=== PATIENT | male | born 1955 | race Caucasian/White ===

== ENCOUNTER 2018-02-05 10:21 | Inpatient (IN) ==
[2018-02-05] MEDS ORDERED: ONDANSETRON 4 MG/2 ML VIAL IV STA (10:49)
[2018-02-05] MEDS ORDERED: HYDROmorphone 2 MG/1 ML VIAL IV STA ×2 (10:49→13:28)
[2018-02-05] MEDS ORDERED: SODIUM CHLORIDE 0.9% 500 ML IV STA (10:49)
[2018-02-05] MEDS ORDERED: ONDANSETRON 4 MG/2 ML VIAL ONE (10:58)
[2018-02-05] MEDS ORDERED: HYDROmorphone 2 MG/1 ML VIAL ONE ×2 (10:59→13:29)
[2018-02-05 11:26] LABS: Basophils # 0.1 10*3/uL (0.0-0.2); Basophils % 0.3 % (0.0-0.8); Eosinophils % 0.1 % (0.00-10.9); Hematocrit 42.2 VOL% (42.0-52.0); Hemoglobin 14.4 GM/DL (14.0-18.0); Immature Granulocytes % 0.6 %; Immature Granulocytes Absolute 0.12 #; Lymphocytes % 4.8 % (21.2-54.2); Mean Corpuscular HGB Conc 34.1 GM/DL (32-36); Mean Corpuscular Hemoglobin 29 PG (27-34); Mean Corpuscular Volume 85.9 FL (87-102); Mean Platelet Volume 9.9 FL (9.6-12.0); Monocytes # 1.9 10*3/uL (0.11-0.8); Monocytes % 9.2 % (1.7-12.7); Neutrophils # 17.8 10*3/uL (1.4-7.4); Platelet Count 328 T/CUMM (130-400); Red Blood Count 4.91 MC/CUMM (3.8-5.5); Red Cell Distribution Width 12.9 % (9.3-17.3); White Blood Count 20.9 T/CUMM (4-12)
[2018-02-05 11:59] LABS: Lactic Acid 1.5 MMOL/L (0.4-2.0)
[2018-02-05 13:01] LABS: Bilirubin,Total 2.9 MG/DL (0.2-1.0); Calcium 9.2 MG/DL (8.5-10.1); Osmolality,Calculated 279.8 MOS/KG (273-304); Potassium 3.8 MMOL/L (3.5-5.1); Total Protein 6.9 G/DL (6.4-8.3)
[2018-02-05 13:46] LABS: Band Neutrophils 2 % (0-10); Hypochromasia 2+; Lymphocytes 8 % (20-55); Platelet Estimate Adequate; Segmented Neutrophils 82 % (50-85); Total Cells Counted 100
[2018-02-05 13:48] LABS: Apearance,Urine Slightly Hazy (Clear); Bilirubin,Urine Negative (Negative); Blood, Urine Negative (Negative); Glucose,Urine (UA) 50 mg/dL (Negative); Hyaline Casts,Urine 1 /LPF (0-3); Ketones,Urine 5 mg/dL (Negative); Mucus,Urine Moderate /LPF (Occasional); Nitrite,Urine Negative (Negative); Protein,Urine 30 MG/DL; RBC,Urine 3 /HPF (0-4); Urine Color Amber (Yellow); Urine Specific Gravity 1.031 (1.001-1.035); WBC,Urine 4 /HPF (0-6)
[2018-02-05] MEDS ORDERED: DEXTROSE 50% 25 GM/50 ML VIAL IV PRN (17:14)
[2018-02-05] MEDS ORDERED: GLUCAGON 1 MG VIAL IM PRN (17:14)
[2018-02-05] MEDS: SODIUM CHLORIDE 0.9% 1,000 ML IV SCH (18:10)
[2018-02-05] MEDS: INSULIN LISPRO 100 UNIT/ML SUBCUT SCH (18:11)
[2018-02-05] MEDS: HYDROmorphone 2 MG/1 ML VIAL IV PRN (18:25)
[2018-02-05] MEDS: ONDANSETRON 4 MG/2 ML VIAL IV PRN (19:39)
[2018-02-05] MEDS: ENOXAPARIN 40 MG/0.4 ML SYRINGE SUBCUT SCH (20:44)
[2018-02-05] MEDS: DOCUSATE SODIUM 100 MG CAPSULE PO SCH (20:46)
[2018-02-06] MEDS: INSULIN LISPRO 100 UNIT/ML SUBCUT SCH ×4 (00:05→18:23)
[2018-02-06] MEDS: ONDANSETRON 4 MG/2 ML VIAL IV PRN ×3 (00:43→20:28)
[2018-02-06] MEDS: HYDROmorphone 2 MG/1 ML VIAL IV PRN ×4 (00:44→20:29)
[2018-02-06] MEDS: SODIUM CHLORIDE 0.9% 1,000 ML IV SCH ×2 (01:29→10:31)
[2018-02-06 06:46] LABS: Basophils % 0.3 % (0.0-0.8); Eosinophils % 0.2 % (0.00-10.9); Hematocrit 37.6 VOL% (42.0-52.0); Hemoglobin 12.6 GM/DL (14.0-18.0); Immature Granulocytes % 0.9 %; Immature Granulocytes Absolute 0.13 #; Lymphocytes # 1.2 10*3/uL (1.4-4.0); Lymphocytes % 8.5 % (21.2-54.2); Mean Corpuscular HGB Conc 33.5 GM/DL (32-36); Mean Corpuscular Hemoglobin 29 PG (27-34); Mean Corpuscular Volume 86.4 FL (87-102); Monocytes # 0.4 10*3/uL (0.11-0.8); Neutrophils # 12.4 10*3/uL (1.4-7.4); Neutrophils % 87.1 % (38.7-73.9); Platelet Count 321 T/CUMM (130-400); Red Blood Count 4.35 MC/CUMM (3.8-5.5); Red Cell Distribution Width 13.4 % (9.3-17.3); White Blood Count 14.2 T/CUMM (4-12)
[2018-02-06 07:25] LABS: Albumin 3.3 G/DL (3.4-5.0); Bilirubin,Direct 0.45 MG/DL (0.0-0.20); Bilirubin,Total 1.4 MG/DL (0.2-1.0); Calcium 8.7 MG/DL (8.5-10.1); Osmolality,Calculated 279.7 MOS/KG (273-304); Potassium 3.5 MMOL/L (3.5-5.1); Risk Ratio 4.63; Total Protein 6.3 G/DL (6.4-8.3); VLDL CHOLESTEROL 36.4 MG/DL
[2018-02-06] MEDS: DOCUSATE SODIUM 100 MG CAPSULE PO SCH ×2 (09:20→20:33)
[2018-02-06] MEDS: PANTOPRAZOLE 40 MG VIAL IV SCH (09:21)
[2018-02-06] MEDS: hydrALAZINE 20 MG/1 ML VIAL IV PRN ×3 (09:23→20:56)
[2018-02-06] MEDS: METOPROLOL SUCCINATE XL 100 MG TABLET PO SCH (10:01)
[2018-02-06] MEDS: QUINAPRIL 20 MG TABLET PO SCH (10:01)
[2018-02-06] MEDS: DILTIAZEM CD 180 MG CAPSULE PO SCH (10:01)
[2018-02-06] MEDS: POTASSIUM CHLORIDE INJ 10 MEQ in LACTATED RINGERS 1,000 ML IV SCH ×2 (13:47→19:14)
[2018-02-06] MEDS: ACETAMINOPHEN 325 MG TABLET PO PRN ×2 (17:45→22:41)
[2018-02-06] MEDS: ENOXAPARIN 40 MG/0.4 ML SYRINGE SUBCUT SCH (20:30)
[2018-02-07] MEDS: POTASSIUM CHLORIDE INJ 10 MEQ in LACTATED RINGERS 1,000 ML IV SCH ×4 (00:31→19:30)
[2018-02-07] MEDS: INSULIN LISPRO 100 UNIT/ML SUBCUT SCH ×4 (00:57→19:01)
[2018-02-07 05:16] LABS: Basophils % 0.3 % (0.0-0.8); Eosinophils % 0.2 % (0.00-10.9); Hematocrit 35.2 VOL% (42.0-52.0); Hemoglobin 11.8 GM/DL (14.0-18.0); Immature Granulocytes % 0.9 %; Immature Granulocytes Absolute 0.12 #; Lymphocytes # 1.1 10*3/uL (1.4-4.0); Lymphocytes % 8.1 % (21.2-54.2); Mean Corpuscular HGB Conc 33.5 GM/DL (32-36); Mean Corpuscular Hemoglobin 29 PG (27-34); Mean Corpuscular Volume 87.6 FL (87-102); Mean Platelet Volume 9.6 FL (9.6-12.0); Monocytes # 1.3 10*3/uL (0.11-0.8); Monocytes % 9.3 % (1.7-12.7); Neutrophils # 10.9 10*3/uL (1.4-7.4); Neutrophils % 81.2 % (38.7-73.9); Platelet Count 321 T/CUMM (130-400); Red Blood Count 4.02 MC/CUMM (3.8-5.5); Red Cell Distribution Width 13.2 % (9.3-17.3); White Blood Count 13.4 T/CUMM (4-12)
[2018-02-07] MEDS: ACETAMINOPHEN 325 MG TABLET PO PRN ×2 (05:33→18:20)
[2018-02-07 06:09] LABS: Albumin 2.9 G/DL (3.4-5.0); Bilirubin,Direct 0.47 MG/DL (0.0-0.20); Bilirubin,Indirect 1.1 MG/DL (0.0-1.0); Bilirubin,Total 1.6 MG/DL (0.2-1.0); Calcium 8.6 MG/DL (8.5-10.1); Osmolality,Calculated 278.4 MOS/KG (273-304); Potassium 3.5 MMOL/L (3.5-5.1); Total Protein 5.9 G/DL (6.4-8.3)
[2018-02-07] MEDS: DILTIAZEM CD 180 MG CAPSULE PO SCH (08:57)
[2018-02-07] MEDS: QUINAPRIL 20 MG TABLET PO SCH (08:57)
[2018-02-07] MEDS: METOPROLOL SUCCINATE XL 100 MG TABLET PO SCH (08:57)
[2018-02-07] MEDS: hydrALAZINE 20 MG/1 ML VIAL IV PRN ×2 (09:00→20:40)
[2018-02-07] MEDS: PANTOPRAZOLE 40 MG VIAL IV SCH (09:00)
[2018-02-07] MEDS: ATORVASTATIN 10 MG TABLET PO SCH (09:00)
[2018-02-07] MEDS: DOCUSATE SODIUM 100 MG CAPSULE PO SCH ×2 (09:00→20:41)
[2018-02-07] MEDS: HYDROmorphone 2 MG/1 ML VIAL IV PRN ×4 (09:04→22:40)
[2018-02-07] MEDS: ONDANSETRON 4 MG/2 ML VIAL IV PRN ×2 (09:12→18:36)
[2018-02-07] MEDS: ENOXAPARIN 40 MG/0.4 ML SYRINGE SUBCUT SCH (20:41)
[2018-02-08] MEDS: INSULIN LISPRO 100 UNIT/ML SUBCUT SCH ×4 (00:08→18:40)
[2018-02-08] MEDS: ACETAMINOPHEN 325 MG TABLET PO PRN ×2 (00:09→06:51)
[2018-02-08] MEDS: hydrALAZINE 20 MG/1 ML VIAL IV PRN ×2 (04:19→19:45)
[2018-02-08 04:50] LABS: Basophils % 0.2 % (0.0-0.8); Eosinophils % 0.3 % (0.00-10.9); Hematocrit 33.3 VOL% (42.0-52.0); Hemoglobin 11.6 GM/DL (14.0-18.0); Immature Granulocytes % 0.6 %; Immature Granulocytes Absolute 0.08 #; Lymphocytes # 0.7 10*3/uL (1.4-4.0); Lymphocytes % 5.5 % (21.2-54.2); Mean Corpuscular HGB Conc 34.8 GM/DL (32-36); Mean Corpuscular Hemoglobin 30 PG (27-34); Mean Corpuscular Volume 85.4 FL (87-102); Mean Platelet Volume 9.3 FL (9.6-12.0); Monocytes % 7.7 % (1.7-12.7); Neutrophils # 11.2 10*3/uL (1.4-7.4); Neutrophils % 85.7 % (38.7-73.9); Platelet Count 355 T/CUMM (130-400); Red Cell Distribution Width 13.5 % (9.3-17.3)
[2018-02-08 05:19] LABS: Band Neutrophils 3 % (0-10); Eosinophils 1 % (0-10); Lymphocytes 3 % (20-55); Microcytosis 1+; Segmented Neutrophils 86 % (50-85); Total Cells Counted 100
[2018-02-08 05:20] LABS: Platelet Estimate Normal
[2018-02-08 05:29] LABS: Albumin 2.8 G/DL (3.4-5.0); Bilirubin,Direct 0.47 MG/DL (0.0-0.20); Bilirubin,Indirect 0.9 MG/DL (0.0-1.0); Bilirubin,Total 1.4 MG/DL (0.2-1.0); Calcium 8.5 MG/DL (8.5-10.1); Osmolality,Calculated 272.8 MOS/KG (273-304); Potassium 3.6 MMOL/L (3.5-5.1); Total Protein 5.7 G/DL (6.4-8.3)
[2018-02-08] MEDS: HYDROmorphone 2 MG/1 ML VIAL IV PRN ×3 (08:06→17:34)
[2018-02-08] MEDS: QUINAPRIL 20 MG TABLET PO SCH (08:08)
[2018-02-08] MEDS: METOPROLOL SUCCINATE XL 100 MG TABLET PO SCH (08:08)
[2018-02-08] MEDS: DILTIAZEM CD 180 MG CAPSULE PO SCH (08:08)
[2018-02-08] MEDS: ATORVASTATIN 10 MG TABLET PO SCH (08:08)
[2018-02-08] MEDS: ONDANSETRON 4 MG/2 ML VIAL IV PRN ×2 (08:09→19:46)
[2018-02-08] MEDS: DOCUSATE SODIUM 100 MG CAPSULE PO SCH ×2 (08:09→19:46)
[2018-02-08] MEDS: PANTOPRAZOLE 40 MG VIAL IV SCH (08:15)
[2018-02-08] MEDS: POTASSIUM CHLORIDE INJ 10 MEQ in LACTATED RINGERS 1,000 ML IV SCH (10:07)
[2018-02-08 12:51] LABS: Free PSA/PSA Ratio 0.21 ratio
[2018-02-08] MEDS: ENOXAPARIN 40 MG/0.4 ML SYRINGE SUBCUT SCH (19:47)
[2018-02-09] MEDS: IBUPROFEN 600 MG TABLET PO PRN ×3 (00:30→19:07)
[2018-02-09] MEDS: HYDROmorphone 2 MG/1 ML VIAL IV PRN (00:35)
[2018-02-09] MEDS: DOCUSATE SODIUM 100 MG CAPSULE PO SCH ×3 (00:36→21:52)
[2018-02-09] MEDS: INSULIN LISPRO 100 UNIT/ML SUBCUT SCH ×4 (00:36→19:01)
[2018-02-09] MEDS: ENOXAPARIN 40 MG/0.4 ML SYRINGE SUBCUT SCH ×2 (00:36→21:52)
[2018-02-09 05:04] LABS: Basophils % 0.3 % (0.0-0.8); Eosinophils # 0.1 10*3/uL (0.0-0.87); Eosinophils % 0.5 % (0.00-10.9); Hematocrit 34.6 VOL% (42.0-52.0); Hemoglobin 11.6 GM/DL (14.0-18.0); Immature Granulocytes % 0.6 %; Immature Granulocytes Absolute 0.07 #; Lymphocytes # 1.1 10*3/uL (1.4-4.0); Lymphocytes % 8.6 % (21.2-54.2); Mean Corpuscular HGB Conc 33.5 GM/DL (32-36); Mean Corpuscular Hemoglobin 29 PG (27-34); Mean Corpuscular Volume 87.4 FL (87-102); Mean Platelet Volume 9.2 FL (9.6-12.0); Monocytes # 1.2 10*3/uL (0.11-0.8); Monocytes % 9.4 % (1.7-12.7); Neutrophils # 10.2 10*3/uL (1.4-7.4); Neutrophils % 80.6 % (38.7-73.9); Platelet Count 368 T/CUMM (130-400); Red Blood Count 3.96 MC/CUMM (3.8-5.5); Red Cell Distribution Width 13.2 % (9.3-17.3); White Blood Count 12.6 T/CUMM (4-12)
[2018-02-09 05:41] LABS: Albumin 2.7 G/DL (3.4-5.0); Bilirubin,Direct 0.31 MG/DL (0.0-0.20); Bilirubin,Indirect 0.7 MG/DL (0.0-1.0); Calcium 8.5 MG/DL (8.5-10.1); Osmolality,Calculated 274.8 MOS/KG (273-304); Potassium 3.3 MMOL/L (3.5-5.1); Total Protein 5.9 G/DL (6.4-8.3)
[2018-02-09] MEDS ORDERED: hydrALAZINE 20 MG/1 ML VIAL IV ONE ×2 (09:09→09:30)
[2018-02-09] MEDS ORDERED: POTASSIUM CHLORIDE 20 MEQ TABLET PO ONE (09:10)
[2018-02-09] MEDS: QUINAPRIL 20 MG TABLET PO SCH (09:31)
[2018-02-09] MEDS: DILTIAZEM CD 240 MG CAPSULE PO SCH ×2 (09:32→21:50)
[2018-02-09] MEDS: ATORVASTATIN 10 MG TABLET PO SCH (09:35)
[2018-02-09] MEDS: METOPROLOL SUCCINATE XL 50 MG TABLET PO SCH (09:35)
[2018-02-09] MEDS: CIPROFLOXACIN INJ 400 MG in PREMIX 1 EACH IV SCH ×2 (10:09→21:52)
[2018-02-09 10:36] LABS: Apearance,Urine Slightly Hazy (Clear); Bacteria,Urine Occasional /HPF (Few); Bilirubin,Urine Negative (Negative); Blood, Urine Small mg/dL (Negative); Glucose,Urine (UA) 150 mg/dL (Negative); Ketones,Urine 20 mg/dL (Negative); Mucus,Urine Occasional /LPF (Occasional); Nitrite,Urine Negative (Negative); Protein,Urine >=500 MG/DL; RBC,Urine 5 /HPF (0-4); Squamous Epithelial Cell,Urine Occasional /HPF (0-10); Urine Color Yellow (Yellow); Urine Specific Gravity 1.016 (1.001-1.035); WBC,Urine 5 /HPF (0-6)
[2018-02-09] MEDS: PANTOPRAZOLE 40 MG TABLET PO SCH (17:30)
[2018-02-10] MEDS: INSULIN LISPRO 100 UNIT/ML SUBCUT SCH ×4 (00:27→18:39)
[2018-02-10 05:03] LABS: Basophils # 0.1 10*3/uL (0.0-0.2); Basophils % 0.4 % (0.0-0.8); Eosinophils # 0.1 10*3/uL (0.0-0.87); Eosinophils % 0.9 % (0.00-10.9); Hematocrit 33.7 VOL% (42.0-52.0); Hemoglobin 11.7 GM/DL (14.0-18.0); Immature Granulocytes % 0.5 %; Immature Granulocytes Absolute 0.07 #; Lymphocytes # 1.2 10*3/uL (1.4-4.0); Lymphocytes % 8.8 % (21.2-54.2); Mean Corpuscular HGB Conc 34.7 GM/DL (32-36); Mean Corpuscular Hemoglobin 30 PG (27-34); Mean Corpuscular Volume 86.2 FL (87-102); Mean Platelet Volume 9.3 FL (9.6-12.0); Monocytes # 1.5 10*3/uL (0.11-0.8); Monocytes % 11.2 % (1.7-12.7); NRBC # 0.04 10*3/uL; Neutrophils # 10.7 10*3/uL (1.4-7.4); Neutrophils % 78.2 % (38.7-73.9); Platelet Count 370 T/CUMM (130-400); Red Blood Count 3.91 MC/CUMM (3.8-5.5); Red Cell Distribution Width 13.4 % (9.3-17.3); White Blood Count 13.6 T/CUMM (4-12)
[2018-02-10 05:42] LABS: Albumin 2.4 G/DL (3.4-5.0); Bilirubin,Direct 0.29 MG/DL (0.0-0.20); Bilirubin,Indirect 0.6 MG/DL (0.0-1.0); Bilirubin,Total 0.9 MG/DL (0.2-1.0); Calcium 8.4 MG/DL (8.5-10.1); Osmolality,Calculated 278.7 MOS/KG (273-304); Potassium 3.5 MMOL/L (3.5-5.1); Total Protein 5.4 G/DL (6.4-8.3)
[2018-02-10 07:06] LABS: Band Neutrophils 15 % (0-10); Eosinophils 3 % (0-10); Lymphocytes 9 % (20-55); Segmented Neutrophils 68 % (50-85); Total Cells Counted 100
[2018-02-10] MEDS: METOPROLOL SUCCINATE XL 50 MG TABLET PO SCH (09:46)
[2018-02-10] MEDS: DOCUSATE SODIUM 100 MG CAPSULE PO SCH ×2 (09:46→21:11)
[2018-02-10] MEDS: AMOXICILLIN/CLAV 875 MG TABLET PO SCH ×2 (09:46→21:11)
[2018-02-10] MEDS: ATORVASTATIN 10 MG TABLET PO SCH (09:46)
[2018-02-10] MEDS: DILTIAZEM CD 240 MG CAPSULE PO SCH ×2 (09:47→21:08)
[2018-02-10] MEDS: QUINAPRIL 20 MG TABLET PO SCH (09:47)
[2018-02-10] MEDS: hydrALAZINE 20 MG/1 ML VIAL IV PRN (09:48)
[2018-02-10] MEDS: HYDROmorphone 2 MG/1 ML VIAL IV PRN (12:34)
[2018-02-10] MEDS: ONDANSETRON 4 MG/2 ML VIAL IV PRN (12:39)
[2018-02-10] MEDS: PANTOPRAZOLE 40 MG TABLET PO SCH (17:51)
[2018-02-10] MEDS: ACETAMINOPHEN 325 MG TABLET PO PRN (18:48)
[2018-02-10] MEDS: ENOXAPARIN 40 MG/0.4 ML SYRINGE SUBCUT SCH (21:08)
[2018-02-11] MEDS: INSULIN LISPRO 100 UNIT/ML SUBCUT SCH ×3 (01:14→11:33)
[2018-02-11 06:15] LABS: Basophils % 0.3 % (0.0-0.8); Eosinophils # 0.1 10*3/uL (0.0-0.87); Eosinophils % 0.6 % (0.00-10.9); Hematocrit 32.5 VOL% (42.0-52.0); Hemoglobin 10.9 GM/DL (14.0-18.0); Immature Granulocytes % 0.6 %; Immature Granulocytes Absolute 0.07 #; Lymphocytes # 1.3 10*3/uL (1.4-4.0); Lymphocytes % 10.1 % (21.2-54.2); Mean Corpuscular HGB Conc 33.5 GM/DL (32-36); Mean Corpuscular Hemoglobin 29 PG (27-34); Mean Corpuscular Volume 87.6 FL (87-102); Mean Platelet Volume 9.5 FL (9.6-12.0); Monocytes # 1.4 10*3/uL (0.11-0.8); Monocytes % 11.2 % (1.7-12.7); Neutrophils # 9.7 10*3/uL (1.4-7.4); Neutrophils % 77.2 % (38.7-73.9); Platelet Count 384 T/CUMM (130-400); Red Blood Count 3.71 MC/CUMM (3.8-5.5); Red Cell Distribution Width 13.2 % (9.3-17.3); White Blood Count 12.5 T/CUMM (4-12)
[2018-02-11 06:47] LABS: Albumin 2.5 G/DL (3.4-5.0); Bilirubin,Direct 0.25 MG/DL (0.0-0.20); Bilirubin,Indirect 0.5 MG/DL (0.0-1.0); Bilirubin,Total 0.7 MG/DL (0.2-1.0); Osmolality,Calculated 275.8 MOS/KG (273-304); Potassium 3.5 MMOL/L (3.5-5.1); Total Protein 5.4 G/DL (6.4-8.3)
[2018-02-11] MEDS: QUINAPRIL 20 MG TABLET PO SCH (08:27)
[2018-02-11] MEDS: AMOXICILLIN/CLAV 875 MG TABLET PO SCH (08:27)
[2018-02-11] MEDS: DILTIAZEM CD 240 MG CAPSULE PO SCH (08:28)
[2018-02-11] MEDS: DOCUSATE SODIUM 100 MG CAPSULE PO SCH (08:29)
[2018-02-11] MEDS: METOPROLOL SUCCINATE XL 50 MG TABLET PO SCH (08:30)
[2018-02-11] MEDS: ATORVASTATIN 10 MG TABLET PO SCH (08:30)
[2018-02-11 11:16] VITALS: BP 152/74
== END 2018-02-11 14:27 | disposition home or self-care (01) | DRG 440 ==
LOC: EDBD → N.ED 10:21 → N.EDINP 14:12 → N.2E 16:54
PROVIDERS: ADMIT Family Medicine; ATTEND Family Medicine

== ENCOUNTER 2020-05-16 14:58 | Inpatient (IN) ==
[2020-05-16] MEDS ORDERED: ONDANSETRON 4 MG/2 ML VIAL IV STA (16:11)
[2020-05-16] MEDS ORDERED: metroNIDAZOLE INJ 500 MG in PREMIX 1 EACH IV STA (16:11)
[2020-05-16] MEDS ORDERED: PANTOPRAZOLE 40 MG VIAL IV STA (16:11)
[2020-05-16] MEDS ORDERED: METOCLOPRAMIDE 10 MG/2 ML VIAL IV STA (16:11)
[2020-05-16] MEDS ORDERED: DICYCLOMINE 20 MG/2 ML AMP IM ONE (16:26)
[2020-05-16 16:47] LABS: Basophils % 0.3 % (0.0-0.8); Eosinophils % 0.1 % (0.00-10.9); Hematocrit 37.4 VOL% (42.0-52.0); Hemoglobin 12.1 GM/DL (14.0-18.0); Immature Granulocytes % 1.2 %; Immature Granulocytes Absolute 0.18 #; Lymphocytes # 1.4 10*3/uL (1.4-4.0); Mean Corpuscular HGB Conc 32.4 GM/DL (32-36); Mean Corpuscular Volume 88.4 FL (87-102); Mean Platelet Volume 10.1 FL (9.6-12.0); Monocytes % 5.6 % (1.7-12.7); Neutrophils % 83.8 % (38.7-73.9); Platelet Count 299 T/CUMM (130-400); Red Blood Count 4.23 MC/CUMM (3.8-5.5); Red Cell Distribution Width 13.6 % (9.3-17.3); White Blood Count 15.2 T/CUMM (4-12)
[2020-05-16 16:56] LABS: INR 1.2; Partial Thromboplastin Time 33.5 SECS (23.9-33.8)
[2020-05-16 17:00] LABS: Alanine Aminotransferase 33 U/L (16-61); Albumin 3.2 G/DL (3.4-5.0); Alkaline Phosphatase 93 U/L (45-117); Amylase 149 U/L (25-115); Aspartate Amino Transferase 24 U/L (0-37); Bilirubin,Total < 0.39 MG/DL (0.2-1.0); Blood Urea Nitrogen 102 MG/DL (7-18); Calcium 8.5 MG/DL (8.5-10.1); Estimated Glom Filtration Rate 5 ML/MIN; Ferritin 138.3 ng/ml (26-388); Glucose 92 MG/DL (74-106); Osmolality,Calculated 289.9 MOS/KG (273-304)
[2020-05-16] MEDS ORDERED: SODIUM CHLORIDE 0.9% 2,000 ML IV STA (17:07)
[2020-05-16] MEDS ORDERED: ALBUTEROL NEB SOLN 5 MG/ML 20 ML/BOTTLE CONT NEB STA (17:07)
[2020-05-16] MEDS ORDERED: CALCIUM CHLORIDE 1,000 MG/10 ML SYRINGE IV STA (17:07)
[2020-05-16] MEDS ORDERED: TAMSULOSIN 0.4 MG CAPSULE PO STA (17:20)
[2020-05-16] MEDS ORDERED: LEVOFLOXACIN INJ 750 MG in PREMIX 1 EACH IV STA (17:20)
[2020-05-16] MEDS ORDERED: ONDANSETRON 4 MG/2 ML VIAL IV PRN (17:43)
[2020-05-16] MEDS ORDERED: GLUCAGON 1 MG VIAL IM PRN (17:43)
[2020-05-16] MEDS ORDERED: ACETAMINOPHEN 325 MG TABLET PO PRN (17:43)
[2020-05-16] MEDS ORDERED: DEXTROSE 10% 250 ML BAG IV PRN (17:43)
[2020-05-16 18:04] LABS: Apearance,Urine CLEAR (Clear); Bacteria,Urine Occasional /HPF (Few); Bilirubin,Urine Negative (Negative); Blood, Urine Large mg/dL (Negative); Glucose,Urine (UA) Negative (Negative); Ketones,Urine Negative (Negative); Nitrite,Urine Negative (Negative); Protein,Urine Negative; RBC,Urine 266 /HPF (0-4); Sperm,Urine Occasional /HPF (Negative); Urine Color Yellow (Yellow); Urine Specific Gravity 1.008 (1.001-1.035); Urine Urobilinogen < 2.0 EU/DL (0.2-1.0); WBC,Urine 5 /HPF (0-6)
[2020-05-16] MEDS ORDERED: ZALEPLON 5 MG CAPSULE PO PRN (18:11)
[2020-05-16] MEDS ORDERED: SODIUM POLYSTYRENE SULFATE 15 GM/60 ML BOTTLE PO STA (18:18)
[2020-05-16] MEDS ORDERED: SODIUM BICARBONATE 50 MEQ/50 ML VIAL IV ONE (18:19)
[2020-05-16] MEDS ORDERED: KETOROLAC 10 MG TABLET PO PRN (18:22)
[2020-05-16] MEDS: SODIUM CHLORIDE 0.9% 1,000 ML IV SCH (19:40)
[2020-05-16] MEDS: hydrALAZINE 20 MG/1 ML VIAL IV PRN (20:40)
[2020-05-16] MEDS: DILTIAZEM CD 240 MG CAPSULE PO SCH (22:08)
[2020-05-16] MEDS: INSULIN REGULAR 100 UNIT/ML SUBCUT SCH (22:09)
[2020-05-17] MEDS: SODIUM CHLORIDE 0.9% 1,000 ML IV SCH ×3 (05:22→21:22)
[2020-05-17] MEDS: hydrALAZINE 20 MG/1 ML VIAL IV PRN ×3 (05:23→13:13)
[2020-05-17] MEDS: INSULIN REGULAR 100 UNIT/ML SUBCUT SCH ×4 (07:57→20:46)
[2020-05-17 08:27] LABS: Basophils % 0.3 % (0.0-0.8); Eosinophils % 0.3 % (0.00-10.9); Hematocrit 37.4 VOL% (42.0-52.0); Hemoglobin 12.3 GM/DL (14.0-18.0); Immature Granulocytes % 1.6 %; Lymphocytes # 1.3 10*3/uL (1.4-4.0); Mean Corpuscular HGB Conc 32.9 GM/DL (32-36); Mean Corpuscular Volume 87.6 FL (87-102); Monocytes % 9.6 % (1.7-12.7); Neutrophils % 78.2 % (38.7-73.9); Platelet Count 296 T/CUMM (130-400); Red Blood Count 4.27 MC/CUMM (3.8-5.5); Red Cell Distribution Width 13.7 % (9.3-17.3); White Blood Count 12.8 T/CUMM (4-12)
[2020-05-17] MEDS: DILTIAZEM CD 240 MG CAPSULE PO SCH ×2 (08:42→21:21)
[2020-05-17] MEDS: ATORVASTATIN 10 MG TABLET PO SCH (08:47)
[2020-05-17] MEDS: PANTOPRAZOLE 40 MG TABLET PO SCH (08:47)
[2020-05-17] MEDS: METOPROLOL SUCCINATE XL 100 MG TABLET PO SCH (08:47)
[2020-05-17] MEDS: TAMSULOSIN 0.4 MG CAPSULE PO SCH ×2 (08:47→21:21)
[2020-05-17 08:48] LABS: Albumin 3.1 G/DL (3.4-5.0); Bilirubin,Total 0.4 MG/DL (0.2-1.0); Calcium 8.8 MG/DL (8.5-10.1); Osmolality,Calculated 291.4 MOS/KG (273-304); Total Protein 6.5 G/DL (6.4-8.3)
[2020-05-17] MEDS ORDERED: PANTOPRAZOLE 40 MG TABLET PO SCH (09:00)
[2020-05-17] MEDS ORDERED: ENOXAPARIN 120 MG/0.8 ML SYRINGE SUBCUT SCH (20:00)
[2020-05-18] MEDS: hydrALAZINE 20 MG/1 ML VIAL IV PRN (05:42)
[2020-05-18] MEDS: SODIUM CHLORIDE 0.9% 1,000 ML IV SCH (05:46)
[2020-05-18 07:42] LABS: Calcium 8.6 MG/DL (8.5-10.1); Osmolality,Calculated 277.7 MOS/KG (273-304)
[2020-05-18] MEDS: INSULIN REGULAR 100 UNIT/ML SUBCUT SCH ×2 (08:03→13:15)
[2020-05-18] MEDS ORDERED: POTASSIUM PHOS/SOD PHOS 250 MG TABLET PO ONE (08:50)
[2020-05-18] MEDS: DILTIAZEM CD 240 MG CAPSULE PO SCH (08:58)
[2020-05-18] MEDS: TAMSULOSIN 0.4 MG CAPSULE PO SCH (08:59)
[2020-05-18] MEDS: PANTOPRAZOLE 40 MG TABLET PO SCH (09:00)
[2020-05-18] MEDS ORDERED: ENOXAPARIN 30 MG/0.3 ML SYRINGE SUBCUT SCH (09:00)
[2020-05-18] MEDS: ATORVASTATIN 10 MG TABLET PO SCH (09:00)
[2020-05-18] MEDS: METOPROLOL SUCCINATE XL 100 MG TABLET PO SCH (09:04)
[2020-05-18] MEDS ORDERED: LOSARTAN 25 MG TABLET PO SCH (11:37)
[2020-05-18 12:06] VITALS: BP 162/81
[2020-05-18] MEDS ORDERED: LEVOFLOXACIN INJ 500 MG in PREMIX 1 EACH IV SCH (18:00)
== END 2020-05-18 13:50 | disposition home or self-care (01) | DRG 683 ==
LOC: N.ED 14:58 → SUATTDRO 17:43 → N.EDINP 17:43 → N.3E 20:00
PROVIDERS: ADMIT Internal Medicine; ATTEND Internal Medicine

== ENCOUNTER 2022-02-12 13:48 | Inpatient (IN) ==
[2022-02-12 14:19] LABS: Basophils % 0.5 % (0.0-0.8); Eosinophils # 0.1 10*3/uL (0.0-0.87); Eosinophils % 1.2 % (0.00-10.9); Immature Granulocytes % 0.4 %; Immature Granulocytes Absolute 0.03 #; Lymphocytes # 1.3 10*3/uL (1.4-4.0); Lymphocytes % 17.1 % (21.2-54.2); Mean Corpuscular HGB Conc 33.3 GM/DL (32-36); Mean Corpuscular Volume 87.7 FL (87-102); Mean Platelet Volume 9.1 FL (9.6-12.0); Monocytes % 5.2 % (1.7-12.7); Neutrophils % 75.6 % (38.7-73.9); Platelet Count 288 T/CUMM (130-400); Red Blood Count 4.79 MC/CUMM (3.8-5.5); Red Cell Distribution Width 13.3 % (9.3-17.3); White Blood Count 7.5 T/CUMM (4-12)
[2022-02-12] MEDS ORDERED: amLODIPine 5 MG TABLET PO STA (14:36)
[2022-02-12 14:38] LABS: Albumin 3.8 G/DL (3.4-5.0); Bilirubin,Total 0.4 MG/DL (0.20-1.00); Potassium 4.2 MMOL/L (3.5-5.1); Total Protein 7.2 G/DL (6.4-8.2)
[2022-02-12] MEDS ORDERED: amLODIPine 10 MG TABLET ONE (14:38)
[2022-02-12] MEDS ORDERED: cloNIDine 0.1 MG TABLET ONE (15:09)
[2022-02-12] MEDS ORDERED: cloNIDine 0.1 MG TABLET PO STA (16:12)
[2022-02-12] MEDS ORDERED: niCARdipine INJ 25 MG in SODIUM CHLORIDE 0.9% 240 ML IV PRN (16:16)
[2022-02-12] MEDS ORDERED: hydrALAZINE 20 MG/1 ML VIAL ONE (16:49)
[2022-02-12] MEDS ORDERED: hydrALAZINE 20 MG/1 ML VIAL IV STA (16:59)
[2022-02-12] MEDS: hydrALAZINE 20 MG/1 ML VIAL IV STA ×2 (17:01→17:09)
[2022-02-12] MEDS ORDERED: ONDANSETRON 4 MG/2 ML VIAL ONE ×2 (17:43→17:45)
[2022-02-12] MEDS ORDERED: ONDANSETRON 4 MG/2 ML VIAL IV STA (17:48)
[2022-02-12] MEDS ORDERED: ALBUTEROL 2.5 MG/3 ML NEB RESP TX PRN (18:02)
[2022-02-12] MEDS ORDERED: GLUCAGON 1 MG VIAL IM PRN (18:03)
[2022-02-12] MEDS ORDERED: DEXTROSE 10% 250 ML BAG IV PRN (18:19)
[2022-02-12] MEDS ORDERED: PROMETHAZINE 25 MG TABLET ONE (18:42)
[2022-02-12] MEDS: INSULIN GLARGINE 100 UNIT/ML SUBCUT SCH (20:22)
[2022-02-12] MEDS: metFORMIN 500 MG TABLET PO SCH (20:22)
[2022-02-12] MEDS: hydrALAZINE 25 MG TABLET PO SCH ×2 (20:23→20:48)
[2022-02-12] MEDS: ISOSORBIDE MONONITRATE 30 MG TABLET PO SCH (20:23)
[2022-02-12] MEDS: FAMOTIDINE 20 MG/2 ML VIAL IV SCH (20:24)
[2022-02-12] MEDS ORDERED: INSULIN LISPRO 100 UNIT/ML SUBCUT SCH (21:00)
[2022-02-13] MEDS: INSULIN LISPRO 100 UNIT/ML SUBCUT SCH ×4 (00:25→18:28)
[2022-02-13 03:35] LABS: Basophils % 0.3 % (0.0-0.8); Eosinophils % 0.3 % (0.00-10.9); Hemoglobin 12.9 GM/DL (14.0-18.0); Immature Granulocytes % 0.3 %; Immature Granulocytes Absolute 0.03 #; Lymphocytes # 1.8 10*3/uL (1.4-4.0); Lymphocytes % 20.7 % (21.2-54.2); Mean Corpuscular HGB Conc 33.1 GM/DL (32-36); Mean Corpuscular Volume 87.4 FL (87-102); Mean Platelet Volume 9.1 FL (9.6-12.0); Monocytes % 8.3 % (1.7-12.7); Neutrophils % 70.1 % (38.7-73.9); Platelet Count 273 T/CUMM (130-400); Red Blood Count 4.46 MC/CUMM (3.8-5.5); Red Cell Distribution Width 13.3 % (9.3-17.3); White Blood Count 8.9 T/CUMM (4-12)
[2022-02-13 03:58] LABS: Albumin 3.2 G/DL (3.4-5.0); Bilirubin,Total 0.5 MG/DL (0.20-1.00); Calcium 8.6 MG/DL (8.5-10.1); Osmolality,Calculated 279.7 MOS/KG (273-304); Potassium 3.6 MMOL/L (3.5-5.1); Total Protein 6.2 G/DL (6.4-8.2)
[2022-02-13] MEDS: FAMOTIDINE 20 MG/2 ML VIAL IV SCH ×2 (05:48→18:45)
[2022-02-13] MEDS: metFORMIN 500 MG TABLET PO SCH ×2 (08:35→17:05)
[2022-02-13] MEDS: hydrALAZINE 25 MG TABLET PO SCH ×3 (08:35→22:22)
[2022-02-13] MEDS: ISOSORBIDE MONONITRATE 30 MG TABLET PO SCH (08:35)
[2022-02-13] MEDS: amLODIPine 10 MG TABLET PO SCH (08:56)
[2022-02-13] MEDS: TAMSULOSIN 0.4 MG CAPSULE PO SCH (22:22)
[2022-02-13] MEDS: INSULIN GLARGINE 100 UNIT/ML SUBCUT SCH (22:23)
[2022-02-14] MEDS: INSULIN LISPRO 100 UNIT/ML SUBCUT SCH ×4 (01:23→17:12)
[2022-02-14] MEDS: FAMOTIDINE 20 MG/2 ML VIAL IV SCH ×2 (06:37→17:25)
[2022-02-14] MEDS: TAMSULOSIN 0.4 MG CAPSULE PO SCH ×2 (08:51→21:49)
[2022-02-14] MEDS: ATORVASTATIN 10 MG TABLET PO SCH (08:51)
[2022-02-14] MEDS: amLODIPine 10 MG TABLET PO SCH (08:51)
[2022-02-14] MEDS: ISOSORBIDE MONONITRATE 30 MG TABLET PO SCH (08:51)
[2022-02-14] MEDS: hydrALAZINE 25 MG TABLET PO SCH ×3 (08:51→21:48)
[2022-02-14] MEDS: metFORMIN 500 MG TABLET PO SCH ×2 (08:51→16:10)
[2022-02-14] MEDS: ENALAPRIL 20 MG TABLET PO SCH (21:47)
[2022-02-14] MEDS: INSULIN GLARGINE 100 UNIT/ML SUBCUT SCH (21:50)
[2022-02-15] MEDS: FAMOTIDINE 20 MG/2 ML VIAL IV SCH ×2 (05:59→17:44)
[2022-02-15 06:03] LABS: Basophils % 0.5 % (0.0-0.8); Eosinophils # 0.2 10*3/uL (0.0-0.87); Eosinophils % 1.8 % (0.00-10.9); Hematocrit 40.4 VOL% (42.0-52.0); Hemoglobin 13.3 GM/DL (14.0-18.0); Immature Granulocytes % 0.4 %; Immature Granulocytes Absolute 0.03 #; Lymphocytes # 1.1 10*3/uL (1.4-4.0); Lymphocytes % 13.7 % (21.2-54.2); Mean Corpuscular HGB Conc 32.9 GM/DL (32-36); Mean Platelet Volume 8.9 FL (9.6-12.0); Monocytes % 10.3 % (1.7-12.7); Neutrophils % 73.3 % (38.7-73.9); Platelet Count 270 T/CUMM (130-400); Red Cell Distribution Width 13.3 % (9.3-17.3); White Blood Count 8.2 T/CUMM (4-12)
[2022-02-15] MEDS: INSULIN LISPRO 100 UNIT/ML SUBCUT SCH ×4 (06:06→17:45)
[2022-02-15 06:26] LABS: Albumin 3.1 G/DL (3.4-5.0); Bilirubin,Total 0.9 MG/DL (0.20-1.00); Calcium 8.7 MG/DL (8.5-10.1); Osmolality,Calculated 282.5 MOS/KG (273-304); Potassium 3.7 MMOL/L (3.5-5.1); Risk Ratio 4.27; Total Protein 6.8 G/DL (6.4-8.2); VLDL Cholesterol 24.4 MG/DL
[2022-02-15] MEDS ORDERED: carvediloL 6.25 MG TABLET PO SCH (09:00)
[2022-02-15] MEDS ORDERED: hydroCHLOROthiazide 12.5 MG CAPSULE PO SCH (09:00)
[2022-02-15] MEDS: metFORMIN 500 MG TABLET PO SCH ×2 (09:52→17:25)
[2022-02-15] MEDS: ATORVASTATIN 10 MG TABLET PO SCH (09:52)
[2022-02-15] MEDS: TAMSULOSIN 0.4 MG CAPSULE PO SCH ×2 (09:52→21:32)
[2022-02-15] MEDS: ENALAPRIL 20 MG TABLET PO SCH ×2 (09:52→21:31)
[2022-02-15] MEDS: amLODIPine 10 MG TABLET PO SCH (09:52)
[2022-02-15] MEDS: ISOSORBIDE MONONITRATE 30 MG TABLET PO SCH (10:17)
[2022-02-15] MEDS: hydrALAZINE 25 MG TABLET PO SCH (10:25)
[2022-02-15] MEDS ORDERED: hydrALAZINE 20 MG/1 ML VIAL IV PRN (12:00)
[2022-02-15] MEDS: INSULIN GLARGINE 100 UNIT/ML SUBCUT SCH (21:35)
[2022-02-16] MEDS: INSULIN LISPRO 100 UNIT/ML SUBCUT SCH ×2 (00:30→05:54)
[2022-02-16] MEDS: FAMOTIDINE 20 MG/2 ML VIAL IV SCH (06:37)
[2022-02-16 08:15] VITALS: BP 165/87
[2022-02-16 08:22] LABS: Basophils % 0.4 % (0.0-0.8); Eosinophils # 0.2 10*3/uL (0.0-0.87); Eosinophils % 1.8 % (0.00-10.9); Hematocrit 43.6 VOL% (42.0-52.0); Hemoglobin 14.4 GM/DL (14.0-18.0); Immature Granulocytes % 0.3 %; Immature Granulocytes Absolute 0.03 #; Lymphocytes # 1.5 10*3/uL (1.4-4.0); Lymphocytes % 16.2 % (21.2-54.2); Mean Corpuscular Volume 87.4 FL (87-102); Monocytes % 7.8 % (1.7-12.7); Neutrophils % 73.5 % (38.7-73.9); Platelet Count 336 T/CUMM (130-400); Red Blood Count 4.99 MC/CUMM (3.8-5.5); Red Cell Distribution Width 13.6 % (9.3-17.3); White Blood Count 9.5 T/CUMM (4-12)
[2022-02-16 08:50] LABS: Calcium 9.3 MG/DL (8.5-10.1); Osmolality,Calculated 283.7 MOS/KG (273-304); Potassium 4.1 MMOL/L (3.5-5.1)
[2022-02-16] MEDS ORDERED: ATORVASTATIN 40 MG TABLET PO SCH (09:00)
[2022-02-16] MEDS ORDERED: ASPIRIN EC 81 MG TABLET PO SCH (09:00)
[2022-02-16] MEDS: TAMSULOSIN 0.4 MG CAPSULE PO SCH (09:30)
[2022-02-16] MEDS: amLODIPine 10 MG TABLET PO SCH (09:30)
[2022-02-16] MEDS: ISOSORBIDE MONONITRATE 30 MG TABLET PO SCH (09:30)
[2022-02-16] MEDS: metFORMIN 500 MG TABLET PO SCH (09:30)
[2022-02-16] MEDS: ENALAPRIL 20 MG TABLET PO SCH (09:30)
== END 2022-02-16 11:25 | disposition home or self-care (01) | DRG 305 ==
LOC: EDUNIT# → EDBD → N.ED 13:48 → N.EDINP 18:02 → SUATTDRO 18:02 → N.ICU 20:02 → N.5E 02-13 17:46
PROVIDERS: ADMIT Internal Medicine; ATTEND Internal Medicine